=== PATIENT | male | born 1935 | race Caucasian/White ===

== ENCOUNTER → 2022-11-08 09:33 | Outpatient (CLI) | payer MEDICARE, OTHER, SELFPAY ==
--- NOTE | 2022-11-08 09:37 | DI.RAD.S_ITS ---
PROCEDURE: XR LUMBAR SPINE MIN 4V INDICATIONS: BACK PAIN TECHNIQUE: 5 views of the lumbar spine were acquired, including bilateral oblique views. COMPARISON: None. FINDINGS: Bones: 5 nonrib-bearing vertebrae are present. Slight rightward curvature. No vertebral body compression fractures. No suspicious bony lesions. Moderate disc height loss at all levels. Facet arthrosis L3 through S1. Soft tissues: Overlying bowel gas pattern is normal. No suspicious soft tissue calcifications. Oblique images: No pars defects. IMPRESSION: Moderate, multilevel degenerative disc disease and lower lumbar facet arthrosis. Dictated by: Piotr Ariza M.D. on 11/08/2022 at 9:07 Approved by: Piotr Ariza M.D. on 11/08/2022 at 9:08
== END ==
PROVIDERS: PCP Family Medicine; Referring Provider Physical Medicine & Rehabilitation; Visit Provider Physical Medicine & Rehabilitation
DX: M54.9 Dorsalgia, unspecified (principal); M51.36 Other intervertebral disc degeneration, lumbar region; M47.816 Spondylosis without myelopathy or radiculopathy, lumbar region; M48.062 Spinal stenosis, lumbar region with neurogenic claudication; Z98.890 Other specified postprocedural states
CPT/HCPCS: 72110; 99214

== ENCOUNTER → 2023-03-29 11:00 | Outpatient (CLI) | payer MEDICARE, OTHER, SELFPAY ==
--- NOTE | 2023-03-29 11:01 | DI.MRI.S_ITS ---
PROCEDURE: MR LUMBAR SPINE WO CON INDICATIONS: SPINAL STENOSIS WITH LOWER EXTREMITY SYMPTOMS TECHNIQUE: Noncontrast sagittal T1 spin echo and T2 fast echo, sagittal STIR, and T2 fast spin echo through the lumbar spine. In cases with scoliosis, additional coronal T2 fast spin echo may be performed. COMPARISON: None. FINDINGS: Image quality: Excellent. Alignment and Curvature: There is normal bony alignment. Bone Marrow: Marrow is of normal overall signal. No acute vertebral body compression fractures. Spinal Cord: Conus medullaris terminates at the T12-L1 level. Visualized cord demonstrates normal signal and size. Paraspinous Soft Tissues: No paravertebral masses. Bilateral simple renal cysts are present. Discs: Multilevel moderate to severe disc desiccation is present most severe at L4-5, L5-S1. T12-L1: Mild disc bulge with superimposed posterior central protrusion. Mild spinal stenosis. Mild left foraminal narrowing with facet and ligamentum flavum hypertrophy. L1-L2: Mild disc bulge with minimal canal narrowing. [id number] bilateral foraminal narrowing with facet and ligamentum flavum hypertrophy. L2-L3: Mild disc bulge with mild spinal stenosis. Mild bilateral foraminal narrowing with facet and ligamentum flavum hypertrophy. L3-L4: Mild disc bulge without spinal stenosis or foraminal narrowing. Facet and ligamentum flavum hypertrophy are present. L4-L5: Mild disc bulge without spinal stenosis. Mild bilateral foraminal narrowing with facet and ligamentum flavum hypertrophy. L5-S1: Mild disc bulge without spinal stenosis. No foraminal narrowing. IMPRESSION: Multilevel degenerative changes. Multilevel spinal stenosis most severe at L2-3 secondary to disc bulge with contributing effect of facet/ligamentum flavum arthropathy. Multilevel foraminal narrowing most severe at L1-2 secondary to facet/ligamentum flavum arthropathy. Dictated by: Sandra Shen M.D. on 03/29/2023 at 16:03 Approved by: Sandra Shen M.D. on 03/29/2023 at 16:06
== END ==
PROVIDERS: PCP Family Medicine; Referring Provider Physical Medicine & Rehabilitation; Visit Provider Physical Medicine & Rehabilitation
DX: M48.062 Spinal stenosis, lumbar region with neurogenic claudication (principal); M51.36 Other intervertebral disc degeneration, lumbar region; M47.816 Spondylosis without myelopathy or radiculopathy, lumbar region
CPT/HCPCS: 72148

== ENCOUNTER 2023-05-17 14:09 | Outpatient (CLI) | payer MEDICARE, OTHER, SELFPAY ==
[2023-05-17] VITALS (9 sets, daily range): BP systolic 124–173; BP diastolic 58–79; PULSE 55–66; RESP 14–20; TEMP 37.1; O2SAT 96–98
--- NOTE | 2023-05-17 14:30 | DI.RAD.S_ITS ---
PROCEDURE: PAIN L INTERLAMINAR/CAUDAL INJ INDICATIONS: SPONDYLOSIS COMPARISON: [facility], MR, MR LUMBAR SPINE WO CON, 03/29/2023, 11:48. FINDINGS: Three Fluoroscopic spot filming was performed to verify placement of a spinal needle at the L2-L3 level, as labeled on the films. Appropriate location of the needle tip was confirmed by injection of iodinated contrast. IMPRESSION: Intraprocedural examination within normal limits. Dictated by: Ace Claros M.D. on 05/17/2023 at 17:35 Approved by: Ace Claros M.D. on 05/17/2023 at 17:35
[2023-05-17] MEDS: MIDAZOLAM 2 MG/2 ML VIAL IV (14:59)
[2023-05-17] MEDS: BUPIVACAINE 0.25% (PF) VIAL 2 ML INJ (15:03)
[2023-05-17] MEDS: iopamidoL 15 ML VIAL 3 ML INJ (15:03)
[2023-05-17] MEDS: BETAMETHASONE 30 MG/5 ML MDV 6 MG INJ (15:03)
[2023-05-17] MEDS: DEXAMETHASONE 10 MG/ML VIAL INJ (15:03)
--- NOTE | 2023-05-17 15:22 | PM.PROC.IR.1 ---
Date/Time/Diagnoses Date of procedure: 05/17/23 Time of procedure: 15:22 Pre-procedure diagnosis: 1. HNP WITH RADICULAR FEATURES, 2. MULTILEVEL CENTRAL STENOSIS, Post-procedure diagnosis: same Procedure Notes Procedure: 1. FLUOROSCOPICALLY GUIDED CONTRAST CONTROLLED INTERLAMINAR EPIDURAL STEROID INJECTION - L2/3 Indications: Wolfgang is referred by Dr. Morgan for treatment of Bilateral Foraminal Stenosis L>R LE symptoms. Physician: Chuy Riley Total Fluoroscopy time (seconds): 28 Total sedation minutes: 17 Complications: none Procedure in detail & Post-procedure care: FINDINGS Multilevel Central Spinal Stenosis with Nerve Root Compression DESCRIPTION OF PROCEDURE Fluoroscopically guided, contrast-controlled L2/3 translaminar epidural steroid injection. Following review of allergy and review of potential side effects and complications, including, but not necessarily limited to, infection, allergic reaction, local tissue breakdown, temporary as well as permanent nerve injury, paralysis, stroke and possible , the patient indicated that the patient understood and agreed to proceed. An informed consent document was signed by the patient, witnessed by a nurse, and placed in the patient's chart. Additionally, other treatment options including modalities, medications, and physical therapy were reviewed with the patient. After review of previous anaesthesic history and IV conscious sedation the patient was deemed safe to proceed with today?s procedure with IV conscious sedation as ASA class II designation. Safety time-out was performed to confirm patient ID, procedure to be performed and site of procedure. IV sedation was accomplished with a combination of 2mg Versed administered by the RN after DO order, titrated to patient comfort during the course of the procedure while the patient remained responsive to all verbal commands. In the prone position, following sterile prep and drape of the lumbar region,the L2/3 translaminar space was identified fluoroscopically. The skin was anesthetized via a 25-gauge, 1.5-inch needle with 1% lidocaine solution. At this point, a 22-gauge short bevel spinal needle was atraumatically introduced and advanced under fluoroscopic guidance into the region of the L2/3 translaminar space. Depth was confirmed on lateral view. Radiological data, including multiple fluoroscopic views of the lumbar spine, reveal a spinal needle at the L2/3 translaminar space. Lateral views then show placement of the needle in the epidural space. Subsequent views show contrast material flowing superiorly and inferiorly in the epidural space. No vascular or intrathecal uptake is observed. At this point, using loss of resistance technique with saline and air, the epidural space was entered. This was confirmed following negative aspiration with injection of approximately 1.5 cc of Isovue 200, showing excellent epidural flow without vascular or intrathecal uptake. At this point, 1 cc of 1% lidocaine solution combined with 2cc or 10mg of dexamethasone and 6mg of betamethasone was injected without incident. The patient tolerated the procedure well without signs or symptoms of complications prior to transfer to the recovery area continued monitoring without incident. The patient was then transferred to the recovery area where they were observed for an appropriate period of time after the injection. The patient reported a VAS score of 6 prior to the procedure and a post-procedure VAS of 0. POST OP INSTRUCTIONS The patient was provided a Pain Log to continue to record their response to the target-specific procedure prior to follow-up visit with their referring physician. Additionally, specific post-injection care instructions and a contact number to our office were provided if concerns arise regarding possible complications associated with the procedure are suspected.
--- NOTE | 2023-05-17 16:48 | PC.NURSE ---
Patient noted to be going in and out of Afib while in the procedure. Patient reports he has no history of Afib, he reports though that he had a nuclear stress test done a few weeks ago and that he has an appointment with his PCP on Tuesday. He also reports he was told he may need a pacemaker placed at some point. No new order from Dr Osvaldo brewster to just have him follow up with his PCP. Patient was advised.
== END 2023-05-17 15:40 | disposition home or self-care (01) ==
PROVIDERS: PCP Family Medicine; Referring Provider Physical Medicine & Rehabilitation; Visit Provider Physical Medicine & Rehabilitation
DX: M48.062 Spinal stenosis, lumbar region with neurogenic claudication (principal); M51.26 Other intervertebral disc displacement, lumbar region
CPT/HCPCS: 62323; 99152; J0702; J1100; J2250; J3490